=== PATIENT | female | born 1970 | race Caucasian/White ===

== ENCOUNTER 2017-05-20 11:38 | Emergency (ER) | payer OTHER ==
[2017-05-20 11:49] VITALS: BP 111/75; PULSE 97; TEMP 98.1; BMI 31.1
[2017-05-20] MEDS ORDERED: KETOROLAC TROMETHAMINE 60 MG/2 ML VIAL IM ONE (12:31)
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
[2017-05-20] MEDS ORDERED: KETOROLAC TROMETHAMINE 60 MG/2 ML VIAL ONE (12:34)
== END 2017-05-20 14:58 | disposition home or self-care (01) ==
LOC: JERFT 11:38 → SUPCPDRO 11:38 → JERFT 14:58
PROC: 3E0233Z Introduction of Anti-inflammatory into Muscle, Percutaneous Approach (ICD-10-PCS; principal; 2017-05-20)
DX: M54.12 Radiculopathy, cervical region (principal); M54.16 Radiculopathy, lumbar region; E03.9 Hypothyroidism, unspecified; V47.5XXA Car driver injured in collision with fixed or stationary object in traffic accident, initial encounter; W22.11XA Striking against or struck by driver side automobile airbag, initial encounter; Y93.89 Activity, other specified; Y92.410 Unspecified street and highway as the place of occurrence of the external cause
CPT/HCPCS: 72050-TC; 72100-TC; 99281-25

== ENCOUNTER 2018-06-25 20:53 | Emergency (ER) | payer OTHER ==
[2018-06-25 21:04] VITALS: BP 101/67; PULSE 89; TEMP 98; BMI 32.9
--- NOTE | 2018-06-25 22:31 | PDOC ---
History of Present Illness - General Chief Complaint: Wound Stated Complaint: ruptured varicose vein Time Seen by Provider: 06/25/18 21:37 History Source: Patient Exam Limitations: No Limitations - History of Present Illness Initial Comments: 06/25/18 22:26 Patient was brought by ambulance for evaluation of ruptured right lower extremity per accosted the. Was not doing any particular activity that had an onset of acute bleeding from a small site of the right posterior knee area. Patient has known varicose veins in his had a rupture in the past but not for many months. Was unable to states bleeding at home and called ambulance. 06/25/18 22:34 Timing/Duration: reports: just prior to arrival, getting worse Severity: Yes: moderate Location: reports: extremities (right lower extremity) Associated Symptoms: reports: denies symptoms Past History - Travel Traveled outside of the country in the last 30 days: No Close contact w/someone who was outside of country & ill: No - Past Medical History Allergies/Adverse Reactions: Allergies Allergy/AdvReac Type Severity Reaction Status Date / Time No Known Allergies Allergy Verified 06/25/18 21:04 Home Medications: Ambulatory Orders Levothyroxine [Synthroid -] 75 mcg PO DAILY 06/25/18 - Surgical History Abdominal Surgery: Yes - Reproductive History Tubal Ligation: Yes - Suicide/Smoking/Psychosocial Hx Smoking Status: No Smoking History: Unknown if ever smoked Have you smoked in the past 12 months: No Number of Cigarettes Smoked Daily: 0 Information on smoking cessation initiated: No Hx Alcohol Use: No Drug/Substance Use Hx: No Substance Use Type: None Review of Systems - Review of Systems Able to Perform ROS?: Yes Is the patient limited [place] proficient: Yes Constitutional: Yes: Symptoms Reported, See HPI. No: Fever HEENTM: Yes: See HPI. No: Symptoms Reported Respiratory: No: Symptoms reported Musculoskeletal: Yes: Symptoms Reported, See HPI, Other (endernessto legs due to varicosities) Integumentary: Yes: Symptoms Reported, See HPI Neurological: No: Symptoms reported All Other Systems: Reviewed and Negative *Physical Exam - Vital Signs Last Vital Signs Temp Pulse Resp BP Pulse Ox 98.0 F 89 16 101/67 100 06/25/18 21:02 06/25/18 21:02 06/25/18 21:02 06/25/18 21:02 06/25/18 21:02 - Physical Exam General Appearance: Yes: Nourished, Appropriately Dressed, Apparent Distress, Mild Distress HEENT: positive: LEEANNA, Normal ENT Inspection, TMs Normal, Pharynx Normal Neck: positive: Supple. negative: Lymphadenopathy (R), Lymphadenopathy (L) Respiratory/Chest: positive: Lungs Clear, Normal Breath Sounds Musculoskeletal: positive: Normal Inspection Extremity: positive: Normal Capillary Refill, Normal Inspection, Normal Range of Motion, Tender, Other (torturous and tender vcosities with point lesion noted at site of bleed.) Integumentary: positive: Normal Color, Dry, Warm Neurologic: positive: ream cutter II-XII NML intact, Fully Oriented, Alert Progress Note - Progress Note Progress Note: no active bleeding since arrival to [facility]. Wound was cauterized using a silver Nitrate stick. and no recurrant bleed noted. Pressure Guaze/ shahid wrap applied. Will f/u with Vascular tomorrow Medical Decision Making - Medical Decision Making 06/25/18 22:37 cauterizing with silver nitrate stick performed. No active bleed reoccured to right leg at site - wrapped with Pressure and shahid wrap. Will F/U with PMD tomorrow for further intervention *DC/Admit/Observation/Transfer Diagnosis at time of Disposition: Varicose vein of leg Qualifiers: Varicose vein complication: inflammation Laterality: right Qualified Code(s): I83.11 - Varicose veins of right lower extremity with inflammation - Discharge Dispostion Disposition: HOME Condition at time of disposition: Stable Decision to Admit order: No - Referrals Referrals: Amy Meza [Primary Care Provider] - Des Rocha MD [Non Staff, Medical] - - Patient Instructions Printed Discharge Instructions: DI for Varicose Veins Additional Instructions: REst, Elevate leg- avoid prolonged standing Drink lots of fluids/ teas/ water, NO heavy lifting or strenuos activity until cleared by PMD Call for appointment this week with vascular surgeon and treatment for vericose veins. - Post Discharge Activity Forms/Work/School Notes: Back to Work
== END 2018-06-25 22:47 | disposition home or self-care (01) ==
LOC: JERFT 20:53
DX: I83.891 Varicose veins of right lower extremity with other complications (principal); I83.11 Varicose veins of right lower extremity with inflammation
CPT/HCPCS: 99281-25

== ENCOUNTER 2020-04-06 00:59 | Emergency (ER) | payer OTHER ==
[2020-04-06 01:16] VITALS: TEMP 98.2; BMI 31.1
[2020-04-06 01:41] LABS: EOS % 8.2 % (0-4.5); HEMOGLOBIN 13.6 GM/dL (10.7-15.3); LYMPH % 21.4 % (8-40); MCH 30.9 pg (25.7-33.7); MEAN CELL VOLUME 90.8 fl (80-96); MEAN PLT VOLUME 8.4 fl (7.5-11.1); MONO % 15.2 % (3.8-10.2); NEUT % 54.2 % (42.8-82.8); PLATELET COUNT 210 K/MM3 (134-434); RDW 13.2 % (11.6-15.6); WHITE BLOOD COUNT 6.9 K/mm3 (4.0-10.0)
--- NOTE | 2020-04-06 01:53 | PDOC ---
History of Present Illness - General Chief Complaint: Chest Pain Stated Complaint: CHEST TIGHTNESS - History of Present Illness Initial Comments: Pt is a 49yo F with PMH hypothyroid who presents with chest pressure. States that she had runny nose and sore throat and cough productive of yellow sputum that started 3 days ago. States that chest pressure, SOB, [place], headache, and inability to sleep began on Tuesday night. States the pressure and headache are worse with coughing. Chest pressure described as nonradiating, nonpositional, nonexertional. States that she took Ibuprofen tuesday night for her headache with improvement of symptoms. States that she is currently not experiencing headache. Pt thinks she is having a viral infection, states she gets these symptoms with "temperature changes." Denies n/v, diaphoresis. Denies any recent travel, sick contacts, COVID+ exposure PMH: hypothyroid PSH: C sections Meds: synthroid Allergies: NKDA Social: denies tobacco use, etoh use, illicit drug use Review of Systems CONSTITUTIONAL: reports chills, malaise;denies fever, diaphoresis, generalized weakness, loss of appetite HEENT:reports rhinorrhea, sore throat CARDIOVASCULAR:reports chest pain, denies syncope, palpitations, irregular heart rate, lightheadedness RESPIRATORY: reports cough, shortness of breath, dyspnea with exertion; denies hemoptysis GASTROINTESTINAL: denies abdominal pain, nausea, vomiting, diarrhea, constipation GENITOURINARY:denies dysuria, frequency, urgency MUSCULOSKELETAL:denies myalgia, arthralgia HEMATOLOGIC/IMMUNOLOGIC:denies easy bleeding, easy bruising NEUROLOGIC:reports headache; denies loss of consciousness, focal weakness or paresthesias, dizziness SKIN:denies rash, itching, pallor Physical Exam General: awake, alert, fully oriented, in no acute distress, well developed, well nourished Head: normocephalic, atraumatic Eyes: PERRL, EOMI, anicteric sclera, conjunctiva clear ENT: Auricles normal inspection, hearing grossly normal, oropharynx clear without exudates. Moist mucous membranes Neck: supple, normal ROM, no LAD or masses Lung: equal breath sounds b/l, CTA b/l, no crackles, wheezes; no distress, speaks full sentences Heart: RRR, normal S1, S2, no murmurs appreciated Abdomen: soft, non tender, normoactive bowel sounds, no guarding, rebound, masses Extremities: no edema, no erythema or tenderness, DP/PT pulses 2+ and symmetric, no clubbing, cyanosis Neuro: CN2-12 grossly intact, moves all extremities, normal speech Skin: warm, dry, no rashes or lesions noted MDM Pt is a 49yo F with PMH hypothyroid who presents with chest pressure, a/w rhinorrhea, sore throat, productive cough. DDx including but not limited to: ACS, pericarditis, URI, pneumonia, COVID Workup: labs, cxr, ekg EKG: normal sinus rhythm, HR 83bpm, ND 132ms, QRS 78ms, QTc 430ms, new T wave inversion on lead 3 HEART Score: 3 CXR with infiltrate in R lower lobe, will order BNP BNP 26.5 Pt requesting medication for her productive cough - will send prescription for sudafed. Disposition Discharge to home Past History - Medical History Allergies/Adverse Reactions: Allergies Allergy/AdvReac Type Severity Reaction Status Date / Time No Known Allergies Allergy Verified 04/06/20 01:14 Home Medications: Ambulatory Orders Levothyroxine [Synthroid -] 75 mcg PO DAILY 06/25/18 Ibuprofen 600 mg PO TID #30 tablet 04/06/20 Pseudoephedrine HCl [Sudafed] 60 mg PO BID #10 tablet 04/06/20 - Surgical History Abdominal Surgery: Yes - Reproductive History Is Patient Now?: No Tubal Ligation: Yes - Psycho-Social/Smoking History Smoking Status: No Smoking History: Never smoked Have you smoked in the past 12 months: No Number of Cigarettes Smoked Daily: 0 Information on smoking cessation initiated: No - Substance Abuse Hx (Audit-C & DAST Scrn) How often the patient has a drink containing alcohol: Never Score: In Men: 4 or > Positive; In Women: 3 or > Positive: 0 Screen Result (Pos requires Nsg. Audit-10AR): Negative In the last yr the pt used illegal drug/Rx for NonMed reason: No Score: Yes response is considered Positive: 0 Screen Result (Positive result requires Nsg. DAST-10): Negative *Physical Exam - Vital Signs Last Vital Signs Temp Pulse Resp BP Pulse Ox 98.2 F 88 20 108/59 L 100 04/06/20 01:14 04/06/20 01:14 04/06/20 01:14 04/06/20 01:14 04/06/20 01:14 ED Treatment Course - LABORATORY CBC & Chemistry Diagram: 04/06/20 01:27 04/06/20 01:27 - RADIOLOGY Radiology Studies Ordered: Category Date Time Status CHEST X-RAY PORTABLE* [RAD] Stat Radiology 04/06/20 01:28 Ordered Discharge - Discharge Information Problems reviewed: Yes Clinical Impression/Diagnosis: Productive cough, Chest pressure, Postnasal drip Condition: Stable Disposition: HOME - Additional Discharge Information Prescriptions: Ibuprofen 600 mg PO TID #30 tablet Pseudoephedrine HCl [Sudafed] 60 mg PO BID #10 tablet - Follow up/Referral Referrals: Candido Dhaliwal MD [Staff Physician] - - Patient Discharge Instructions Patient Printed Discharge Instructions: DI for Cough -- Adult, DI for Allergic Rhinitis, Fluticasone Nasal [place] Additional Instructions: You came into the ER productive cough and chest pressure. In the ED, you were evaluated with blood work, electrocardiogram (EKG), and chest xray. Your blood work results did not indicate an infection, but you had abnormal white blood cell counts that you should follow up with your primary care doctor. Your EKG was normal. You do not appear to be an acute need for immediate hospitalization. You were advised to follow up with your primary care doctor within 1 week. We recommend that you try sudafed and ibuprofen for your cough. You can purchase this over the counter, follow the instructions on the label. Come back to the ER immediately with any new or worsening concerns, such as high fevers, worsening shortness of breath, inability to tolerate food or water. Thank you for coming to the [facility] ER. We hope you feel better soon! - Post Discharge Activity
--- NOTE | 2020-04-06 02:14 | PDOC ---
Documentation entered by Hiwot Michaud SCRIBE, acting as scribe for Taylor Dawkins MD. Taylor Dawkins MD: This documentation has been prepared by the anastaciaeJaswant Sydney, SCRIBE, under my direction and personally reviewed by me in its entirety. I confirm that the documentation accurately reflects all work, treatment, procedures, and medical decision making performed by me. Attending Attestation - Resident Resident Name: Karlee Staples - ED Attending Attestation I have performed the following: I have examined & evaluated the patient, The case was reviewed & discussed with the resident, I agree w/resident's findings & plan, Exceptions are as noted - HPI HPI: 04/06/20 01:26 Patient is a 49 year old female with a significant past medical history of hypothyroidism who presents to the ED with one day of chest pressure. As per patient, she developed common cold symptoms of runny nose and clear productive cough three days ago. Patient endorses noticing her present symptoms secondary to her forceful cough. Denies fever, chills, headache, abdominal pain, nausea, vomiting, or urinary changes. Allergies: NKDA PCP: Dr. Meza - Physicial Exam PE: 04/06/20 01:39 GENERAL: Well-appearing, well-nourished. No apparent distress. HEENT: Normocephalic, atraumatic. PERRL, EOM intact. CARDIOVASCULAR: Normal S1, S2. Regular rate and rhythm. PULMONARY: Clear to auscultation bilaterally. ABDOMEN: Soft, non-distended, non-tender. EXTREMITIES: Normal ROM in all four extremities. No gross deformities. SKIN: Warm, dry. No rash NEUROLOGICAL: No focal neurological deficits. - Medical Decision Making 04/06/20 20:05 Pt likely has a post nasal drip that is viral vs allergic. She is feeling better and she will follow with ENT and pure pak machine operator as an outpatient. Pt will be given sudafed for relief of congestion. All labs normal. Discharge - Discharge Information Problems reviewed: Yes Clinical Impression/Diagnosis: Productive cough, Chest pressure, Postnasal drip Condition: Stable Disposition: HOME - Additional Discharge Information Prescriptions: Ibuprofen 600 mg PO TID #30 tablet Pseudoephedrine HCl [Sudafed] 60 mg PO BID #10 tablet - Follow up/Referral Referrals: Candido Dhaliwal MD [Staff Physician] - - Patient Discharge Instructions Patient Printed Discharge Instructions: DI for Cough -- Adult, DI for Allergic Rhinitis, Fluticasone Nasal [place] Additional Instructions: You came into the ER productive cough and chest pressure. In the ED, you were evaluated with blood work, electrocardiogram (EKG), and chest xray. Your blood work results did not indicate an infection, but you had abnormal white blood cell counts that you should follow up with your primary care doctor. Your EKG was normal. You do not appear to be an acute need for immediate hospitalization. You were advised to follow up with your primary care doctor within 1 week. We recommend that you try sudafed and ibuprofen for your cough. You can purchase this over the counter, follow the instructions on the label. Come back to the ER immediately with any new or worsening concerns, such as high fevers, worsening shortness of breath, inability to tolerate food or water. Thank you for coming to the [facility] ER. We hope you feel better soon! - Post Discharge Activity
[2020-04-06 02:15] LABS: ALBUMIN 3.4 g/dl (3.4-5.0); ALK PHOS 75 U/L (45-117); ANION GAP 6 MMOL/L (8-16); BILIRUBIN,TOTAL 0.8 mg/dL (0.2-1); BLOOD UREA NITROGEN 15.4 mg/dL (7-18); CALCIUM 8.8 mg/dL (8.5-10.1); CHLORIDE 105 mmol/L (98-107); CO2 28 mmol/L (21-32); CREATININE 0.8 mg/dL (0.55-1.3); GLUCOSE,RANDOM 92 mg/dL (74-106); POTASSIUM 4.1 mmol/L (3.5-5.1); SGOT/AST 17 U/L (15-37); SGPT/ALT 26 U/L (13-61); SODIUM 139 mmol/L (136-145); TOT PROT 7.1 g/dl (6.4-8.2)
[2020-04-06] MEDS ORDERED: PSEUDOEPHEDRINE HCL 60 MG TABLET PO ONE (03:50)
[2020-04-06] MEDS ORDERED: PSEUDOEPHEDRINE HCL 60 MG TABLET ONE (03:53)
[2020-04-06 04:06] LABS: N-TERMINAL BNP 26.5 pg/ml (5-125)
[2020-04-06 04:17] VITALS: BP 106/75; PULSE 81
--- NOTE | 2020-04-07 18:26 | EKG ---
Test Reason : Blood Pressure : / mmHG Vent. Rate : 083 BPM Atrial Rate : 083 BPM P-R Int : 132 ms QRS Dur : 078 ms QT Int : 366 ms P-R-T Axes : 052 036 023 degrees QTc Int : 430 ms NORMAL SINUS RHYTHM LOW VOLTAGE QRS BORDERLINE ECG NO PREVIOUS ECGS AVAILABLE Confirmed by JOHNY ODELL MD ([id number]) on 04/07/2020 6:26:30 PM Referred By: Confirmed By:JOHNY ODELL MD
== END 2020-04-06 04:14 | disposition home or self-care (01) ==
LOC: JER 00:59
DX: R07.89 Other chest pain (principal); R05 Cough; R09.82 Postnasal drip
CPT/HCPCS: 36415; 71045-TC-FY; 80053; 83880; 84484; 85025; 93005; 93010; 99285-25

== ENCOUNTER 2020-10-16 02:10 | Emergency (ER) | payer OTHER ==
[2020-10-16 02:26] VITALS: BP 136/88; PULSE 79; TEMP 97.8; BMI 33.5
[2020-10-16] MEDS ORDERED: IBUPROFEN 600 MG TABLET (FP) PO ONE ×2 (03:09→03:24)
== END 2020-10-16 06:32 | disposition home or self-care (01) ==
LOC: JER 02:10
DX: S90.932A Unspecified superficial injury of left great toe, initial encounter (principal)
CPT/HCPCS: 73630-TC-LT; 99283-25

== ENCOUNTER 2020-12-01 09:05 | Emergency (ER) | payer OTHER ==
[2020-12-01 09:28] VITALS: BP 110/76; PULSE 95; TEMP 98.3; BMI 32.5
[2020-12-01] MEDS ORDERED: IBUPROFEN 400 MG TABLET (FP) PO ONE ×2 (10:41→11:03)
== END 2020-12-01 11:50 | disposition home or self-care (01) ==
LOC: JER 09:05
DX: S16.1XXA Strain of muscle, fascia and tendon at neck level, initial encounter (principal)
CPT/HCPCS: 72050-TC-FY; 99283-25

== ENCOUNTER 2021-07-16 13:43 | Emergency (ER) | payer OTHER ==
[2021-07-16 14:10] VITALS: BP 113/63; PULSE 86; TEMP 97.7; BMI 31.6
[2021-07-16] MEDS ORDERED: SILVER SULFADIAZINE 1% TOP CREAM 50 GM JAR TP ONE ×2 (14:18→14:22)
[2021-07-16] MEDS ORDERED: DIPHTH,PERTUSS(ACELL),TET 0.5 ML DISP.SYRIN IM ONE ×2 (14:19→14:22)
[2021-07-16] MEDS ORDERED: KETOROLAC TROMETHAMINE 30 MG/1 ML VIAL IM ONE (14:36)
[2021-07-16] MEDS ORDERED: KETOROLAC TROMETHAMINE 30 MG/1 ML VIAL ONE (14:37)
== END 2021-07-16 15:13 | disposition home or self-care (01) ==
LOC: JERFT 13:43
PROC: 3E0233Z Introduction of Anti-inflammatory into Muscle, Percutaneous Approach (ICD-10-PCS; principal; 2021-07-16)
PROC: 3E0234Z Introduction of Serum, Toxoid and Vaccine into Muscle, Percutaneous Approach (ICD-10-PCS; 2021-07-16)
DX: T23.102A Burn of first degree of left hand, unspecified site, initial encounter (principal); T22.012A Burn of unspecified degree of left forearm, initial encounter; X12.XXXA Contact with other hot fluids, initial encounter; Y92.000 Kitchen of unspecified non-institutional (private) residence as the place of occurrence of the external cause
CPT/HCPCS: 90471; 90715; 99283-25

== ENCOUNTER 2021-08-09 13:39 | Emergency (ER) | payer OTHER ==
[2021-08-09 14:02] VITALS: BP 95/65; PULSE 106; TEMP 99.1; BMI 30.3
[2021-08-11 00:07] LABS: SARS-CoV-2 NAA Detected (Not Detected)
== END 2021-08-09 15:29 | disposition home or self-care (01) ==
LOC: JER 13:39
DX: J06.9 Acute upper respiratory infection, unspecified (principal); Z11.52 Encounter for screening for COVID-19
CPT/HCPCS: 71046-TC-FY; 87804; 99284-25; C9803; U0003; U0005

== ENCOUNTER → 2022-03-02 | Emergency (ER) | payer OTHER ==
[2022-03-02 20:44] VITALS: BP 100/65; PULSE 90; TEMP 98.2; BMI 25.6
== END ==
LOC: JER 20:28
DX: R10.30 Lower abdominal pain, unspecified (principal)
CPT/HCPCS: 99281-25

== ENCOUNTER 2024-04-24 13:36 | Emergency (ER) | payer OTHER ==
[2024-04-24 13:42] VITALS: BP 99/61; PULSE 77; RESP 18; TEMP 97.8; BMI 25.8
[2024-04-24 14:18] LABS: EPI CELLS 18 /uL (0-25.1); HYALINE CASTS 0 /uL (0-3.1); PH,URINE 7.5 (5.0-8.0); URINE APPEARANCE CLEAR; URINE BACTERIA 81 /uL (0-1359); URINE BILIRUBIN NEGATIVE (NEGATIVE); URINE COLOR YELLOW; URINE GLUCOSE (UA) NEGATIVE (NEGATIVE); URINE KETONE NEGATIVE (NEGATIVE); URINE LEUK ESTERASE 2+ (NEGATIVE); URINE NITRITE NEGATIVE (NEGATIVE); URINE PROTEIN NEGATIVE (NEGATIVE); URINE RBC 67 /uL (0-23.9); URINE UROBILINOGEN 0.2 mg/dL (0.2-1.0); URINE WBC 417 /uL (0-25.8)
[2024-04-24] MEDS ORDERED: IBUPROFEN 600 MG TABLET (FP) PO ONE (14:30)
[2024-04-24] MEDS: IBUPROFEN 600 MG TABLET (FP) PO ONE (14:31)
[2024-04-24 21:15] LABS: HIV INTERPRETATION NEGATIVE (NEGATIVE)
== END 2024-04-24 14:42 | disposition home or self-care (01) ==
LOC: JERFT 13:36
DX: R30.0 Dysuria (principal); N30.01 Acute cystitis with hematuria
CPT/HCPCS: 36415; 81003; 86803; 87389; 99283-25